=== PATIENT | female | born 1980 | race Caucasian/White ===

== ENCOUNTER → 2020-11-25 | Outpatient (CLI) | payer OTHER ==
--- NOTE | 2020-11-25 10:15 | XR ---
EXAMINATION TYPE: XR foot complete RT DATE OF EXAM: 11/25/2020 COMPARISON: NONE HISTORY: Pain TECHNIQUE: Three views are submitted. FINDINGS: The osseous structures are intact. There is no acute fracture or dislocation. 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 Mild arthropathy first MTP joint. Large calcaneal spurs noted. IMPRESSION: 1. No acute fracture or dislocation. If symptoms persist, follow-up exam in 7 to 10 days could be ob tained.
--- NOTE | 2020-11-25 10:16 | XR ---
EXAMINATION TYPE: XR knee complete LT DATE OF EXAM: 11/25/2020 COMPARISON: NONE HISTORY: Pain TECHNIQUE: Three views are submitted. FINDINGS: Joint spaces are preserved. Osseous structures are intact. No acute fracture seen. IMPRESSION: 1. No acute fracture or dislocation.
== END | disposition home or self-care (01) ==
LOC: RADXRMAIN 09:19
PROVIDERS: ATTEND Nurse Practitioner Family
DX: M25.562 Pain in left knee (principal); M79.671 Pain in right foot

== ENCOUNTER → 2021-07-08 | Outpatient (CLI) | payer OTHER ==
--- NOTE | 2021-07-08 15:34 | US ---
EXAMINATION TYPE: US pelvic complete DATE OF EXAM: 07/08/2021 COMPARISON: NONE CLINICAL HISTORY: N91.1 Secondary amenorrhea. Amenorrhea, last LMP was one year ago. TECHNIQUE: Transabdominal (TA). Transabdominal sonographic images of the pelvis were acquired. Date of LMP: Unknown EXAM MEASUREMENTS: Uterus: 7.5 x 4.0 x 3.7 cm Endometrial Stripe: 0.4 cm Right Ovary: 2.3 x 1.9 x 1.1 cm Left Ovary: 2.1 x 1.9 x 1.4 cm 1. Uterus: Anteverted wnl 2. Endometrium: wnl 3. Right Ovary: wnl 4. Left Ovary: wnl 5. Bilateral Adnexa: wnl 6. Posterior cul-de-sac: wnl Limited exam due to patient body habitus. No abnormalities seen at this time. IMPRESSION: Suboptimal study as transvaginal investigation performed. Transabdominal ultrasound shows poor visualized suspected thin endometrial stripe. Symmetric size ovaries measure lower limits of no rmal in size. No adnexal masses noted.
== END | disposition home or self-care (01) ==
LOC: RADUSWWP 14:55
PROVIDERS: ATTEND Family Medicine
DX: N91.1 Secondary amenorrhea (principal)
CPT/HCPCS: 76856

== ENCOUNTER → 2022-08-18 | Outpatient (CLI) | payer OTHER ==
--- NOTE | 2022-08-19 09:34 | MM ---
Reason for Exam: Screening (asymptomatic). Last mammogram was performed 8 year(s) and 10 month(s) ago. Patient History: Menarche at age 15. Patient has no children. Postmenopausal. Patient used Hormonal Contraceptives for 2 years. Maternal aunt had breast cancer. Maternal aunt had breast cancer. Risk Values: Nina 5 year model risk: 0.6%. NCI Lifetime model risk: 10.1%. Prior Study Comparison: 11/01/2012 Bilateral Diagnostic Mammogram, [facility]. 11/02/2013 Bilateral Screening Mammogram, [facility]. Tissue Density: The breast tissue is almost entirely fat. Findings: Analyzed By CAD. Benign-appearing bilateral axillary lymph nodes are redemonstrated. There is minimal 7 mm obscured round mass in the middle depth upper outer aspect left breast that warrants follow-up. Stable group of benign-appearing tiny round calcifications in the left breast anteriorly. Overall Assessment: Incomplete: need additional imaging evaluation, BI-RAD 0 Management: Special View Mammogram of the left breast. Diagnostic Breast Ultrasound of the left breast. Return for spot views and true lateral view left breast along with targeted ultrasound. Patient should continue monthly self-breast exams. A clinical breast exam by your physician is recommended on an annual basis. This exam should not preclude additional follow-up of suspicious palpable abnormalities. Note on Nina scores and lifetime risk: 1. A Nina score greater than 3% is considered moderate risk. If this is the case, consider specialist referral to assess eligibility for a risk reducing agent. 2. If overall lifetime risk for the development of breast cancer is 20% or higher, the patient may qualify for future screening with alternating mammogram and breast MRI. Electronically signed and approved by: Chester Ornelas M.D.
== END | disposition home or self-care (01) ==
LOC: RADMAMWWP 09:42
PROVIDERS: ATTEND Family Medicine
DX: Z12.31 Encounter for screening mammogram for malignant neoplasm of breast (principal); Z78.0 Asymptomatic menopausal state; Z80.3 Family history of malignant neoplasm of breast
CPT/HCPCS: 77067

== ENCOUNTER → 2022-08-25 | Outpatient (CLI) | payer OTHER ==
--- NOTE | 2022-08-25 14:25 | MM ---
Reason for Exam: Additional evaluation requested from abnormal screening. Last screening mammogram was performed less than 1 month ago. Patient History: Menarche at age 15. Patient has no children. Postmenopausal. Patient used Hormonal Contraceptives for 2 years. Maternal aunt had breast cancer. Maternal aunt had breast cancer. Risk Values: Nina 5 year model risk: 0.6%. NCI Lifetime model risk: 10.1%. Prior Study Comparison: 11/01/2012 Bilateral Diagnostic Mammogram, [facility]. 11/02/2013 Bilateral Screening Mammogram, [facility]. 08/18/2022 Bilateral MG screening mammo w CAD, [facility]. Tissue Density: Left: There are scattered fibroglandular densities. Findings: Analyzed By CAD. Persistent focal asymmetry 12 cm from the nipple on CC and MLO view measuring 6 mm in the upper outer quadrant. Overall Assessment: Incomplete: need additional imaging evaluation, BI-RAD 0 Management: Diagnostic Breast Ultrasound of the left breast. Results were given to the patient verbally at the time of exam. Patient should continue monthly self-breast exams. A clinical breast exam by your physician is recommended on an annual basis. This exam should not preclude additional follow-up of suspicious palpable abnormalities. Note on Nina scores and lifetime risk: 1. A Nina score greater than 3% is considered moderate risk. If this is the case, consider specialist referral to assess eligibility for a risk reducing agent. 2. If overall lifetime risk for the development of breast cancer is 20% or higher, the patient may qualify for future screening with alternating mammogram and breast MRI. Electronically signed and approved by: Seth Sharma DO
--- NOTE | 2022-08-25 14:39 | USB ---
Reason for Exam: Additional evaluation requested from abnormal screening. Patient History: Menarche at age 15. Patient has no children. Postmenopausal. Patient used Hormonal Contraceptives for 2 years. Maternal aunt had breast cancer. Maternal aunt had breast cancer. Risk Values: Nina 5 year model risk: 0.6%. NCI Lifetime model risk: 10.1%. Technique: Method: Targeted. Prior Study Comparison: 11/01/2012 Bilateral Diagnostic Mammogram, [facility]. 11/02/2013 Bilateral Screening Mammogram, [facility]. 08/18/2022 Bilateral MG screening mammo w CAD, [facility]. Findings: The upper outer quadrant of the left breast was scanned. Imaged: Ultrasound imaging of: Area of concern. We did not image the retroareolar or axilla. Area on prior mammogram in the left breast is not definitively visualized on ultrasound imaging. No suspicious masses or fluid collections. Overall Assessment: Probably benign, BI-RAD 3 Management: Diagnostic Mammogram of the left breast in 6 months. Follow-up mammogram in 6 months to ensure stability is recommended as the finding was not visualized ultrasound. A clinical breast exam by your physician is recommended on an annual basis and results should be correlated with mammographic findings. This exam should not preclude additional follow-up of suspicious palpable abnormalities. Results were given to the patient verbally at the time of exam. Electronically signed and approved by: Seth Sharma DO
== END | disposition home or self-care (01) ==
LOC: RADMAMWWP 13:33
PROVIDERS: ATTEND Family Medicine
DX: N64.89 Other specified disorders of breast (principal); Z78.0 Asymptomatic menopausal state; Z80.3 Family history of malignant neoplasm of breast
CPT/HCPCS: 77061; 77065

== ENCOUNTER → 2024-01-18 | Outpatient (CLI) | payer BC ==
[2024-01-18 17:18] VITALS: BP 126/85; PULSE 65; RESP 16; TEMP 97.8; BMI 54.0
--- NOTE | 2024-01-18 17:24 | P.HPBAR ---
Bariatric H&P - History & Physicial H&P Date: 01/18/24 History & Physicial: Visit/CC: Patient initial contact: Initial weight: Initial weight in pounds: Height: 5 ft 5.25 in Initial BMI: Last weight: Current weight: 148.353 kg Current weight in pounds: 327.06 Current BMI: 54.0 [place] body weight (based on NIH guidelines): 57.266 kg Excess body weight loss: The patient is a 43 year-old F who presents for Bariatric Assessment. She was on adipex in past. Highest weight is 338 pounds. Wants the gastric bypass. EGD and plan. No back pain. Needs labs, Bypass. Past Medical History Additional Past Medical History / Comment(s): planter fasciitis, rt ankle fracture, pre diabetic History of Any Multi-Drug Resistant Organisms: None Reported Past Surgical History: Cholecystectomy Additional Past Surgical History / Comment(s): eye sugery at age 3, Past Anesthesia/Blood Transfusion Reactions: No Reported Reaction Past Psychological History: Depression Smoking Status: Former smoker Past Alcohol Use History: Occasional Past Drug Use History: None Reported - Past Family History Father Family Medical History: No Reported History Surgical - Exam Vital Signs Temp Pulse Resp BP 97.8 F 65 16 126/85 01/18/24 17:11 01/18/24 17:11 01/18/24 17:11 01/18/24 17:11 Bariatric Checklist Checklist: Plan: Checklist: EGD: 1. Hiatal hernia: 2. H. Pylori: HgbA1c: Vitamin D: Smoking: Current every day smoker Primary care physician referral: Jaki at dr floyd Psychiatry clearance: Cardiology clearance: Sleep study: Diet journal: VTE risk score: VTE risk level: Rehab needs at discharge:
== END ==
LOC: BARWHC3 15:52
PROVIDERS: ATTEND Surgery Plastic and Reconstructive Surgery
DX: E66.01 Morbid (severe) obesity due to excess calories (principal); F17.200 Nicotine dependence, unspecified, uncomplicated; Z68.43 Body mass index [BMI] 50.0-59.9, adult
CPT/HCPCS: 99211

== ENCOUNTER → 2024-02-10 | Outpatient (CLI) | payer BC ==
--- NOTE | 2024-02-10 11:30 | MM ---
Reason for Exam: Additional evaluation requested from prior study. Last mammogram was performed 1 year(s) and 6 month(s) ago. Patient History: Menarche at age 15. Patient has no children. Patient used Hormonal Contraceptives for 2 years. Maternal aunt had breast cancer. Maternal aunt had breast cancer. Risk Values: Nina 5 year model risk: 0.7%. NCI Lifetime model risk: 10.0%. Prior Study Comparison: 11/01/2012 Bilateral Diagnostic Mammogram, [facility]. 11/02/2013 Bilateral Screening Mammogram, [facility]. 08/18/2022 Bilateral MG screening mammo w CAD, [facility]. 08/25/2022 Left MG 3D work up w/cad , [facility]. Tissue Density: The breasts are almost entirely fatty. Findings: Analyzed By CAD. Unchanged intramammary lymph node posterior upper outer quadrant right breast. Chronic nodularity now lateral left breast middle to posterior depth for 1.5 years. No significant change from prior exams. Overall Assessment: Benign, BI-RAD 2 Management: Screening Mammogram of both breasts in 1 year. Results were given to the patient verbally at the time of exam. Patient should continue monthly self-breast exams. A clinical breast exam by your physician is recommended on an annual basis. This exam should not preclude additional follow-up of suspicious palpable abnormalities. Note on Nina scores and lifetime risk: 1. A Nina score greater than 3% is considered moderate risk. If this is the case, consider specialist referral to assess eligibility for a risk reducing agent. 2. If overall lifetime risk for the development of breast cancer is 20% or higher, the patient may qualify for future screening with alternating mammogram and breast MRI. [facility], , 02/10/2024 11:27 AM. Electronically signed and approved by: Shruthi Wren M.D. Radiologist
== END | disposition home or self-care (01) ==
LOC: RADMAMWWP 10:42
PROVIDERS: ATTEND Family Medicine
DX: R92.8 Other abnormal and inconclusive findings on diagnostic imaging of breast (principal); E66.01 Morbid (severe) obesity due to excess calories; I10 Essential (primary) hypertension; E89.1 Postprocedural hypoinsulinemia; D50.8 Other iron deficiency anemias; K74.1 Hepatic sclerosis; N19 Unspecified kidney failure; T56.894A Toxic effect of other metals, undetermined, initial encounter; K50.90 Crohn's disease, unspecified, without complications; K90.9 Intestinal malabsorption, unspecified; Z80.3 Family history of malignant neoplasm of breast; R92.313 Mammographic fatty tissue density, bilateral breasts
CPT/HCPCS: 77062; 77066

== ENCOUNTER → 2024-03-12 | Day surgery (SDC) | payer BC ==
[~2024-03-12] MED LIST: GLYCOPYRROLATE 0.2 MG/ML 2 ML VIAL ONE; KETAMINE HCL IN 0.9 % NACL 50 MG/5 ML SYRINGE ONE; LIDOCAINE 1% INJ 10MG/ML (20 ML MDV) ONE; PROPOFOL 10 MG/ML 20 ML VIAL IV ONE
--- NOTE | 2024-03-12 07:54 | P.GSHP ---
History of Present Illness H&P Date: 03/12/24 CHIEF COMPLAINT: GERD HISTORY OF PRESENT ILLNESS: The patient is a 43-year-old female who presents reports gastroesophageal reflux disease. Upper endoscopy was offered for further evaluation and management. PAST MEDICAL HISTORY: Please see list. PAST SURGICAL HISTORY: Please see list. MEDICATIONS: Please see list. ALLERGIES: Please see list. SOCIAL HISTORY: No illicit drug use FAMILY HISTORY: No reports of Crohn disease or ulcerative colitis. REVIEW OF ORGAN SYSTEMS: CONSTITUTIONAL: No reports of fevers or chills. GI: Denies any blood in stools or constipation. PHYSICAL EXAM: VITAL SIGNS: Stable GENERAL: Well-developed and pleasant in no acute distress. HEENT: No scleral icterus. Extraocular movements grossly intact. Moist buccal mucosa. NECK: Supple without lymphadenopathy. CHEST: Unlabored respirations. Equal bilateral excursions. CARDIOVASCULAR: Regular rate and rhythm. Distal 2+ pulses. ABDOMEN: Soft, nondistended. MUSCULOSKELETAL: No clubbing, cyanosis, or edema. ASSESSMENT: 1. Gastroesophageal reflux disease PLAN: 1. Recommend proceeding with an upper endoscopy Past Medical History Past Medical History: GERD/Reflux Additional Past Medical History / Comment(s): pre diabetic History of Any Multi-Drug Resistant Organisms: None Reported Past Surgical History: Cholecystectomy Additional Past Surgical History / Comment(s): eye surg at age 3 Past Anesthesia/Blood Transfusion Reactions: No Reported Reaction Smoking Status: Former smoker - Past Family History Father Family Medical History: No Reported History Medications and Allergies Home Medications Medication Instructions Recorded Confirmed Type Venlafaxine HCl ER [Effexor Xr] 150 mg PO HS 01/18/24 03/05/24 History metFORMIN HCL 500 mg PO HS 01/18/24 03/05/24 History Calcium Carbonate [Tums] 500 mg PO DAILY 02/15/24 03/05/24 History Ergocalciferol [Vitamin D2 (1250 50,000 unit PO WEEKLY 02/15/24 03/05/24 History Mcg = 18960 Iu)] Fexofenadine HCl 180 mg PO DAILY PRN 03/05/24 03/05/24 History Allergies Allergy/AdvReac Type Severity Reaction Status Date / Time No Known Allergies Allergy Verified 03/05/24 12:26
[2024-03-12 08:52] VITALS: TEMP 97
[2024-03-12] MEDS: LACTATED RINGERS 1,000 ML BAG IV STA (08:54)
[2024-03-12] MEDS: LIDOCAINE 1% (10MG/ML) FOR IV START INTRADERMA STA (08:55)
[2024-03-12] MEDS: IV FLUID CONTINUATION 1,000 ML IV ONE (08:56)
[2024-03-12 09:15] LABS: Glucose,Whole Blood 114 mg/dL (70-110)
--- NOTE | 2024-03-12 09:30 | P.PCN ---
Date of Procedure: 03/12/24 Description of Procedure: PREOPERATIVE DIAGNOSIS: Gastroesophageal reflux disease. Morbid obesity. POSTOPERATIVE DIAGNOSIS: Gastroesophageal reflux disease with esophageal ulcer Morbid obesity. Gastritis. Diaphragmatic hiatal hernia OPERATION: Esophagogastroduodenoscopy with biopsies along esophagus, antrum and duodenum SURGEON: Aline Moss MD ANESTHESIA: MAC. INDICATIONS: The patient is a 43-year-old female who presents with reflux disease. Benefits and risks of the procedure were described. Informed consent was obtained. DESCRIPTION: The patient was brought into the endoscopy suite and laid in the left lateral decubitus position. An Olympus gastroscope was passed along the posterior oropharynx down to the distal esophagus where the squamocolumnar junction was encountered at 37 cm from the incisors. The stomach was entered and no bile reflux was found. Additional findings are listed below. Biopsies with cold forceps were obtained of the antrum. The first through third portion of the duodenum was examined. Retroflexion of the scope confirmed Hill grade 3 lower esophageal valve. The squamocolumnar junction demonstrated LA grade C erosive esophagitis. The stomach was desufflated. The patient tolerated the procedure well. FINDINGS: Squamocolumnar junction 37 cm from the incisors. Diaphragmatic hiatus at 40 cm. Hiatal hernia, 3 cm Hill grade 3 lower esophageal valve. LA grade C erosive esophagitis. Biopsies obtained Biopsies obtained of the duodenum. Chronic gastritis with biopsies obtained. RECOMMENDATIONS: Omeprazole 40 mg daily prescribed Repeat upper endoscopy in 4 to 6 weeks Plan - Discharge Summary Discharge Rx Participant: No New Discharge Prescriptions: New Omeprazole [PriLOSEC] 40 mg PO DAILY #14 cap Continue Venlafaxine HCl ER [Effexor XR] 150 mg PO HS Fexofenadine HCl 180 mg PO DAILY PRN PRN Reason: allergies metFORMIN HCL 500 mg PO HS Calcium Carbonate [Tums] 500 mg PO DAILY Ergocalciferol [Vitamin D2 (1250 Mcg = 42915 Iu)] 50,000 unit PO WEEKLY Discharge Medication List Venlafaxine HCl ER [Effexor XR] 150 mg PO HS 01/18/24 [History] metFORMIN HCL 500 mg PO HS 01/18/24 [History] Calcium Carbonate [Tums] 500 mg PO DAILY 02/15/24 [History] Ergocalciferol [Vitamin D2 (1250 Mcg = 89549 Iu)] 50,000 unit PO WEEKLY 02/15/24 [History] Fexofenadine HCl 180 mg PO DAILY PRN 03/05/24 [History] Omeprazole [PriLOSEC] 40 mg PO DAILY #14 cap 03/12/24 [Rx] Follow up Appointment(s)/Referral(s): [facility] [[facility]-STAFF] - 03/28/24 3:30 pm Patient Instructions/Handouts: Diet for Stomach Ulcers and Gastritis (GEN), Hiatal Hernia (DC) Discharge Disposition: HOME SELF-CARE
[2024-03-12 09:49] VITALS: BP 149/98; PULSE 70; RESP 16
== END | disposition home or self-care (01) ==
LOC: ORWHC2ENDO 08:21
PROVIDERS: ATTEND Surgery Plastic and Reconstructive Surgery
DX: K29.50 Unspecified chronic gastritis without bleeding (principal); K44.9 Diaphragmatic hernia without obstruction or gangrene; K21.00 Gastro-esophageal reflux disease with esophagitis, without bleeding; K22.10 Ulcer of esophagus without bleeding; E11.9 Type 2 diabetes mellitus without complications; F41.9 Anxiety disorder, unspecified; F32.A Depression, unspecified; E66.01 Morbid (severe) obesity due to excess calories; Z87.891 Personal history of nicotine dependence; Z90.49 Acquired absence of other specified parts of digestive tract; Z79.899 Other long term (current) drug therapy
CPT/HCPCS: 81025; 43239; J2003; J2704; J1596; 88305

== ENCOUNTER → 2024-03-28 | Outpatient (CLI) | payer BC ==
[2024-03-28 16:13] VITALS: BP 145/85; PULSE 76; RESP 16; TEMP 98.5
--- NOTE | 2024-03-28 16:47 | P.BASOAP ---
Subjective Progress Note Date: 03/28/24 She wants the bypass. Labs reviewed. Food dairy journal. Labs, vit D, chol, Goal 80 grams. Omepraozle. EKG needed. Objective - Vital Signs Vital signs: Vital Signs Temp 98.5 F 03/28/24 16:07 Pulse 76 03/28/24 16:07 Resp 16 03/28/24 16:07 BP 145/85 03/28/24 16:07 Pulse Ox FiO2 Intake & Output 03/27/24 03/28/24 03/28/24 18:59 06:59 18:59 Weight 153.768 kg Assessment/Plan Plan: Date: 03/28/24 Initial Weight: Initial BMI: Current Weight: 153.768 kg Current BMI: Type of Surgery: Total Volume in Band: Previous Volume: Volume Removed: Volume Added: Band Size:
== END ==
LOC: BARWHC3 15:31
PROVIDERS: ATTEND Surgery Plastic and Reconstructive Surgery
DX: E66.01 Morbid (severe) obesity due to excess calories (principal); F17.200 Nicotine dependence, unspecified, uncomplicated; Z68.43 Body mass index [BMI] 50.0-59.9, adult
CPT/HCPCS: 99211

== ENCOUNTER → 2024-04-23 | Outpatient (CLI) | payer BC | LOC: LABPAT 14:45 | PROVIDERS: ATTEND Surgery Plastic and Reconstructive Surgery | DX: Z01.818 Encounter for other preprocedural examination (principal) ==

== ENCOUNTER → 2024-04-23 | Outpatient (CLI) | payer BC ==
[2024-04-23 13:30] VITALS: BMI 55.2
== END ==
LOC: BARWHC3 12:57
PROVIDERS: ATTEND Surgery Plastic and Reconstructive Surgery
DX: E66.01 Morbid (severe) obesity due to excess calories (principal); F17.210 Nicotine dependence, cigarettes, uncomplicated; Z68.43 Body mass index [BMI] 50.0-59.9, adult
CPT/HCPCS: 97804

== ENCOUNTER → 2024-05-30 | Outpatient (CLI) | payer BC ==
[2024-05-30 18:08] VITALS: BP 154/91; PULSE 82; RESP 16; TEMP 97.7; BMI 55.0
--- NOTE | 2024-05-31 13:54 | P.BASOAP ---
Subjective Progress Note Date: 05/30/24 DATE: 05/30/24 CHIEF COMPLAINT: Morbid obesity HISTORY OF PRESENT ILLNESS: Antoinette Lozano is a 43-year-old female who comes with lifelong morbid obesity. As result of morbid obesity, she has developed diabetes type 2, hypertensive heart disease, obstructive sleep apnea, hyperlipidemia, osteoarthritis of the hips and knees. Her weight has not changed in 1 month. She is looking to the gastric bypass. She has completed medical risk assessment, cardiac risk assessment and dietary surveillance and counseling. At height of 5 feet 5 inches, her ideal body weight is 154 pounds. Her highest documented weight is 338 pounds, BMI 56.4. Today she comes in 333 pounds. Body mass index is 55.0. She is 184 pounds overweight. PAST MEDICAL HISTORY: 1. Morbid obesity due to excess calories 2. Body mass index of 56.4 3. Osteoarthritis of the knees. 4. Osteoarthritis of the lower back. 5. Hypertensive heart disease. 6. Gastroesophageal reflux disease 7. Hyperlipidemia 8. Generalized anxiety disorder 9. Diabetes type 2, non-insulin dependent 10. Depressive disorder PAST SURGICAL HISTORY: 1. Cholecystectomy 2. Hysterectomy 3. Lysis of adhesions 4. Bilateral carpal tunnel release 5. Colonoscopy 6. Upper endoscopy HOME MEDICATIONS: Home Medications Medication Instructions Recorded Confirmed metFORMIN HCL 500 mg PO HS 01/18/24 07/18/24 Fexofenadine HCl 180 mg PO DAILY PRN 03/05/24 07/18/24 Omeprazole [PriLOSEC] 40 mg PO HS 07/11/24 07/18/24 Venlafaxine HCl [Effexor XR] 1 cap PO HS 07/11/24 07/18/24 Previous Rx's Medication Instructions Recorded Acetaminophen Tab [Tylenol] 1,000 mg PO Q6HR PRN #30 tablet 07/10/24 Simethicone 40 mg/0.6 ml Drops 40 mg PO PCHS PRN #30 ml 07/10/24 [Mylicon Drops] bisacodyL [Dulcolax] 5 mg PO DAILY PRN #10 tab 07/10/24 ALLERGIES: Allergies Allergy/AdvReac Type Severity Reaction Status Date / Time adhesive AdvReac Rash/Hives Verified 07/18/24 14:25 SOCIAL HISTORY: Past tobacco use. FAMILY HISTORY: No family history of ulcerative colitis disease or Crohn's disease. Family history of morbid obesity. No lupus in the family. REVIEW OF ORGAN SYSTEMS: CONSTITUTIONAL: At height of 5 feet 5 inches, her ideal body weight is 149 pounds. Her highest documented weight is 338 pounds, BMI 56.4. HEENT: Denies any active troubles with vision or hearing. ENDOCRINE: Has diabetes. Has hypothyroidism. CARDIOVASCULAR: Past reports of palpitations or heart attacks or chest pain. RESPIRATORY: Has daytime somnolence. GASTROINTESTINAL: Denies any bright red blood per rectum. Has gastroesophageal reflux disease. MUSCULOSKELETAL: Has lower back pain and joint pain. Has osteoarthritis of the knees. NEURO: No headaches. No seizure disorders. PSYCH: Has depression. No suicidal ideation. RHEUMATOLOGIC: No lupus. No rheumatoid arthritis. HEMATOLOGIC: Denies any abnormal bleeding or bruising. No personal history of DVTs. SKIN: Has rash. No skin cancer. PHYSICAL EXAM: VITAL SIGNS: Height 5 foot 5 inches, weight 333 pounds. BMI 55.0 Vital Signs Temp 97.7 F 05/30/24 18:04 Pulse 82 05/30/24 18:04 Resp 16 05/30/24 18:04 BP 154/91 05/30/24 18:04 Pulse Ox FiO2 GENERAL: Well-developed in no acute distress. HEENT: No scleral icterus. Extraocular movements grossly intact. Hears conversational speech. No nasal drainage. NECK: Supple without lymphadenopathy. CHEST: Nonlabored respirations with equal bilateral excursions. CARDIOVASCULAR: Regular rate and regular rhythm. Distal 2+ pulses. ABDOMEN: Obese, soft, nontender, nondistended. MUSCULOSKELETAL: No clubbing, cyanosis. NEURO: No focal or lateralizing signs. Cranial nerves 2 through 12 grossly within normal limits. PSYCH: Appropriate affect. Alert and oriented to person, place and time. SKIN: Good skin turgor. Well perfused. LABS: Reviewed February 2024. Hemoglobin A1c elevated 6.4%. Cholesterol elevated at 204. Vitamin D low at 22. EKG: Normal sinus rhythm, April 2024 EGD FINDING: Squamocolumnar junction 37 cm from the incisors. Diaphragmatic hiatus at 40 cm. Hiatal hernia, 3 cm Hill grade 3 lower esophageal valve. LA grade C erosive esophagitis. Biopsies obtained Biopsies obtained of the duodenum. Chronic gastritis with biopsies obtained. Final Pathologic Diagnosis A. DUODENUM, BIOPSY: Benign small bowel mucosa with intact villous architecture, negative for histopathologic abnormality. B. GASTRIC ANTRUM, BIOPSY: Minimal chronic gastritis. Helicobacter pylori organisms are not identified on routine H+E sections. C. ESOPHAGUS, BIOPSY: Mild chronic esophagitis with rare intramucosal eosinophils consistent with reflux esophagitis. ASSESSMENT: 1. Morbid obesity due to excess calories 2. Body mass index of 56.4 3. Osteoarthritis of the knees. 4. Osteoarthritis of the lower back. 5. Hypertensive heart disease. 6. Gastroesophageal reflux disease 7. Hyperlipidemia 8. Generalized anxiety disorder 9. Diabetes type 2, non-insulin dependent 10. Depressive disorder 11. Vitamin D deficiency 12. Diaphragmatic hiatal hernia PLAN: 1. Bariatric options between a sleeve, band and a Nery-en-Y gastric bypass were reviewed in detail. The patient elected for a gastric bypass. Robotic assisted approach described. 2. The [place] [facility] Data was also reviewed with benefits and risks as described. 3. An 8 page second-generation bariatric consent form was reviewed in detail including potential of bleeding, infection, leaks, adequate weight loss, nutritional deficiencies which the patient demonstrated understanding of the risks. 4. A 2 week high-protein low caloric 800 kcal diet described to address hepatomegaly. 5. Preoperative labs including complete metabolic panel and CBC with type and screen recommended. 6. DVT prophylaxis per [place] [facility]. 7. Antibiotic prophylaxis. 8. Inpatient hospitalization anticipated for more than 2 nights. 9. All questions and concerns were addressed with the patient. 10. Patient was given a dietary weight loss goal down to 315. Today she comes in 333 pounds. 11. She is elevated risk with a BMI over 50 including weight gain. 12. Patient was told explicitly that surgery will not occur if her weight loss goal is not obtained. 13. Patient wanted to proceed with potential weight loss surgery on Tuesday. 14. Again surgery will be canceled if weight loss goal of 315 is not obtained Objective - Vital Signs Vital signs: Vital Signs Temp 97.7 F 05/30/24 18:04 Pulse 82 05/30/24 18:04 Resp 16 05/30/24 18:04 BP 154/91 05/30/24 18:04 Pulse Ox FiO2 Intake & Output 05/30/24 05/31/24 05/31/24 18:59 06:59 18:59 Weight 151.046 kg Assessment/Plan Plan: Date: 02/19/25 Initial Weight: Initial BMI: Current Weight: 151.046 kg Current BMI: 55.0 Type of Surgery: Total Volume in Band: Previous Volume: Volume Removed: Volume Added: Band Size:
== END ==
LOC: BARWHC3 16:26
PROVIDERS: ATTEND Surgery Plastic and Reconstructive Surgery
DX: E66.01 Morbid (severe) obesity due to excess calories (principal); Z68.43 Body mass index [BMI] 50.0-59.9, adult; F17.210 Nicotine dependence, cigarettes, uncomplicated; Z91.048 Other nonmedicinal substance allergy status
CPT/HCPCS: 99211

== ENCOUNTER → 2024-06-01 | Outpatient (CLI) | payer BC ==
[2024-06-01 15:14] LABS: Basophils # (A) 0.02 X 10*3/uL (0.00-0.10); Basophils % (A) 0.3 %; Eosinophils # (A) 0.03 X 10*3/uL (0.04-0.35); Eosinophils % (A) 0.5 %; HCT 42.1 % (37.2-46.3); HGB 12.9 g/dL (12.0-15.0); Lymphocytes % (A) 17.7 %; MCH 25.1 pg (27.0-32.0); MCHC 30.6 g/dL (32.0-37.0); MCV 82.1 FL (80.0-97.0); Mean Platelet Volume 10.9 FL (9.5-12.2); Monocytes # (A) 0.44 X 10*3/uL (0.20-1.00); Monocytes % (A) 7.1 %; NRBC Per 100 WBC 0 X 10*3/uL (0.00-0.01); Neutrophils # (A) 4.59 X 10*3/uL (1.80-7.70); Neutrophils % (A) 74.1 %; Platelet Count 249 X 10*3/uL (140-440); RBC 5.13 X 10*6/uL (4.10-5.20); RDW 14.1 % (11.5-14.5)
[2024-06-01 15:26] LABS: Blood Urea Nitrogen 15.7 mg/dL (9.0-27.0); Glucose 95 mg/dL (70-110)
[2024-06-01 15:27] LABS: ALT 41 U/L (8-44); AST 33 U/L (13-35); Albumin 4.2 g/dL (3.8-4.9); Alkaline Phosphatase 118 U/L (41-126); Calcium 9.2 mg/dL (8.7-10.3); Carbon Dioxide 24.1 mmol/L (21.6-31.8); Chloride 102 mmol/L (96-109); Globulin 3.5 g/dL (1.6-3.3); Potassium 3.9 mmol/L (3.5-5.5); Sodium 138 mmol/L (135-145); Total Bilirubin 0.3 mg/dL (0.3-1.2); Total Protein 7.7 g/dL (6.2-8.2)
== END | disposition home or self-care (01) ==
LOC: LABPAT 10:15
PROVIDERS: ATTEND Surgery Plastic and Reconstructive Surgery
DX: Z01.812 Encounter for preprocedural laboratory examination (principal)
CPT/HCPCS: 80053; 85025; 86850; 86900; 86901

== ENCOUNTER 2024-06-04 06:18 | Day surgery (SDC) | payer BC ==
[2024-05-31 14:42] VITALS: BMI 53.7
[~2024-06-04 06:18] MED LIST changes: -GLYCOPYRROLATE 0.2 MG/ML 2 ML VIAL ONE; +HYDROmorphone 0.5 MG/0.5 ML SYRINGE IVP PRN; -KETAMINE HCL IN 0.9 % NACL 50 MG/5 ML SYRINGE ONE; +LACTATED RINGERS 1,000 ML IV SCH; +LIDOCAINE 1% (10MG/ML) FOR IV START INTRADERMA PRN; -LIDOCAINE 1% INJ 10MG/ML (20 ML MDV) ONE; +ONDANSETRON 4 MG/2 ML VIAL IVP ONE; -PROPOFOL 10 MG/ML 20 ML VIAL IV ONE; +droPERidol 2.5 MG/ML VIAL IVP ONE
[2024-06-04 07:45] LABS: Glucose,Whole Blood 87 mg/dL (70-110)
[2024-06-04] MEDS: LACTATED RINGERS 1,000 ML IV ONE ×2 (07:50→08:22)
[2024-06-04] MEDS: ALVIMOPAN 12 MG CAPSULE PO PRN (07:54)
[2024-06-04] MEDS: ONDANSETRON 4 MG/2 ML VIAL IVP PRN (07:54)
[2024-06-04] MEDS: ACETAMINOPHEN TAB 500 MG TAB PO PRN (07:54)
[2024-06-04] MEDS ORDERED: SCOPOLAMINE 1 MG/72 HR PATCH TRANSDERM STA (07:55)
[2024-06-04] MEDS: DEXAMETHASONE SOD PHOSPHATE 4 MG/ML 1 ML VIAL IV ONE (07:55)
[2024-06-04] MEDS: MIDAZOLAM 2 MG/2 ML VIAL IV ONE (07:58)
[2024-06-04] MEDS: HEPARIN SODIUM,PORCINE 5,000 UNIT/ML 1 ML VIAL SQ PRN (08:14)
--- NOTE | 2024-06-04 08:14 | P.GSHP ---
History of Present Illness H&P Date: 06/04/24 CHIEF COMPLAINT: Morbid obesity HISTORY OF PRESENT ILLNESS: Antoinette Lozano is a 43-year-old female who comes with lifelong morbid obesity. As result of morbid obesity, she has developed diabetes type 2, hypertensive heart disease, obstructive sleep apnea, hyperlipidemia, osteoarthritis of the hips and knees. She has completed medical supervised weight loss. She completed medical including cardiac assessment. She has completed psychological risk assessment. All surgical options were reviewed. She elected for gastric bypass. At height of 5 feet 5 inches, her ideal body weight is 154 pounds. Her highest documented weight is 338 pounds, BMI 56.4. Her goal of weight for today's procedure is 318 pounds. She comes in 324 pounds. Her body mass index is 53.9. She is 175 pounds overweight. PAST MEDICAL HISTORY: 1. Morbid obesity due to excess calories 2. Body mass index of 56.4 3. Osteoarthritis of the knees. 4. Osteoarthritis of the lower back. 5. Hypertensive heart disease. 6. Gastroesophageal reflux disease 7. Hyperlipidemia 8. Generalized anxiety disorder 9. Diabetes type 2, non-insulin dependent 10. Depressive disorder PAST SURGICAL HISTORY: 1. Cholecystectomy 2. Hysterectomy 3. Lysis of adhesions 4. Bilateral carpal tunnel release 5. Colonoscopy 6. Upper endoscopy HOME MEDICATIONS: Reviewed list ALLERGIES: Reviewed list SOCIAL HISTORY: Past tobacco use. FAMILY HISTORY: No family history of ulcerative colitis disease or Crohn's disease. Family history of morbid obesity. No lupus in the family. REVIEW OF ORGAN SYSTEMS: CONSTITUTIONAL: At height of 5 feet 5 inches, her ideal body weight is 149 pounds. Her highest documented weight is 338 pounds, BMI 56.4. Her goal of weight for today's procedure is 318 pounds. She comes in 324 pounds. Her body mass index is 52.3. She is 175 pounds overweight. HEENT: Denies any active troubles with vision or hearing. ENDOCRINE: Has diabetes. Has hypothyroidism. CARDIOVASCULAR: Past reports of palpitations or heart attacks or chest pain. RESPIRATORY: Has daytime somnolence. GASTROINTESTINAL: Denies any bright red blood per rectum. Has gastroesophageal reflux disease. MUSCULOSKELETAL: Has lower back pain and joint pain. Has osteoarthritis of the knees. NEURO: No headaches. No seizure disorders. PSYCH: Has depression. No suicidal ideation. RHEUMATOLOGIC: No lupus. No rheumatoid arthritis. HEMATOLOGIC: Denies any abnormal bleeding or bruising. No personal history of DVTs. SKIN: Has rash. No skin cancer. PHYSICAL EXAM: VITAL SIGNS: Height 5 foot 5 inches, weight 324 pounds. BMI 53.9 GENERAL: Well-developed in no acute distress. HEENT: No scleral icterus. Extraocular movements grossly intact. Hears conversational speech. No nasal drainage. NECK: Supple without lymphadenopathy. CHEST: Nonlabored respirations with equal bilateral excursions. CARDIOVASCULAR: Regular rate and regular rhythm. Distal 2+ pulses. ABDOMEN: Obese, soft, nontender, nondistended. MUSCULOSKELETAL: No clubbing, cyanosis. NEURO: No focal or lateralizing signs. Cranial nerves 2 through 12 grossly within normal limits. PSYCH: Appropriate affect. Alert and oriented to person, place and time. SKIN: Good skin turgor. Well perfused. ASSESSMENT: 1. Morbid obesity due to excess calories 2. Body mass index of 56.4 3. Osteoarthritis of the knees. 4. Osteoarthritis of the lower back. 5. Hypertensive heart disease. 6. Gastroesophageal reflux disease 7. Hyperlipidemia 8. Generalized anxiety disorder 9. Diabetes type 2, non-insulin dependent 10. Depressive disorder PLAN: 1. Bariatric options between a sleeve, band and a Nery-en-Y gastric bypass were reviewed in detail. The patient elected for a gastric bypass. Robotic assisted approach described. 2. The [place] [facility] Data was also reviewed with benefits and risks as described. 3. An 8 page second-generation bariatric consent form was reviewed in detail including potential of bleeding, infection, leaks, adequate weight loss, nutritional deficiencies which the patient demonstrated understanding of the risks. 4. A 2 week high-protein low caloric 800 kcal diet described to address hepatomegaly. 5. Preoperative labs including complete metabolic panel and CBC with type and screen recommended. 6. DVT prophylaxis per [place] [facility]. 7. Antibiotic prophylaxis. 8. Inpatient hospitalization anticipated for more than 2 nights. 9. All questions and concerns were addressed with the patient. 10. Overall, patient has expressed understanding of bariatric care including postoperative diet and commitment of lifestyle. Patient should benefit from surgical intervention for correction of her morbid obesity. 11. Extensive counseling for over 3 to 4 weeks with goal weight loss to 318 pounds was described to the patient including at her recent bariatric visit. Patient was extensively counseled that lack of obtaining goal weight puts her at increased risk for complications due to the risk of severe hepatomegaly. Risk of discontinuing her procedure and canceling procedure described in detail. Patient wished to proceed with possibility of diagnostic laparoscopy. Past Medical History Past Medical History: GERD/Reflux Additional Past Medical History / Comment(s): pre diabetic History of Any Multi-Drug Resistant Organisms: None Reported Past Surgical History: Cholecystectomy Additional Past Surgical History / Comment(s): eye surg at age 3 Past Anesthesia/Blood Transfusion Reactions: No Reported Reaction Additional Past Anesthesia/Blood Transfusion Reaction / Comment(s): no hx blood transfusion Additional Past Alcohol Use History / Comment(s): quit smoking 2 yrs ago; drinks about once a month. - Past Family History Father Family Medical History: No Reported History Medications and Allergies Home Medications Medication Instructions Recorded Confirmed Type Venlafaxine HCl ER [Effexor XR] 150 mg PO HS 01/18/24 05/31/24 History metFORMIN HCL 500 mg PO HS 01/18/24 05/31/24 History Ergocalciferol [Vitamin D2 (1250 50,000 unit PO WEEKLY 02/15/24 05/31/24 History Mcg = 85540 Iu)] Fexofenadine HCl 180 mg PO DAILY PRN 03/05/24 05/31/24 History Omeprazole [PriLOSEC] 40 mg PO HS 05/30/24 05/31/24 History Allergies Allergy/AdvReac Type Severity Reaction Status Date / Time No Known Allergies Allergy Verified 05/31/24 14:36 Surgical - Exam Vital Signs Temp Pulse Resp BP Pulse Ox 97.4 F L 75 16 138/84 95 06/04/24 07:01 06/04/24 07:01 06/04/24 07:01 06/04/24 07:01 06/04/24 07:01
--- NOTE | 2024-06-04 08:15 | P.ANPRN ---
Procedure Note - Anesthesia - Nerve Block Performed Bilateral Erector Spinae Single Time Out Performed: Yes Date of Procedure: 06/04/24 Procedure Start Time: 07:50 ( ) Procedure Stop Time: 07:55 Location of Patient: PreOp Indication: Acute Post-Operative Pain, Analgesia, Requested by Surgeon Sedation Type: Sedate with meaningful contact maintained Preparation: Sterile Prep Position: Prone Catheter: None Needle Types: Pajunk Needle Gauge: 21 Ultrasound used to visualize needle placement: Yes Ultrasound used to observe medication spread: Yes Injectate: 0.5% Ropivacaine (see comment for volume) ([id number], Needle level T7---Each side (Resident).) Blood Aspirated: No Pain Paresthesia on Injection Noted: No Resistance on Injection: Normal Image Stored and Saved: Yes Events: Uneventful and Well Tolerated
[2024-06-04] MEDS ORDERED: GLYCOPYRROLATE 0.2 MG/ML 2 ML VIAL ONE (08:19)
[2024-06-04] MEDS ORDERED: DEXAMETHASONE SOD PHOSPHATE 4 MG/ML 1 ML VIAL ONE (08:19)
[2024-06-04] MEDS ORDERED: fentaNYL (PF) 50 MCG/ML 2 ML AMP ONE (08:19)
[2024-06-04] MEDS ORDERED: NEOSTIGMINE 1 MG/ML 10 ML VIAL ONE (08:19)
[2024-06-04] MEDS ORDERED: LIDOCAINE 1% INJ 10MG/ML (20 ML MDV) ONE (08:19)
[2024-06-04] MEDS ORDERED: ROCURONIUM 10 MG/ML (5 ML VIAL) IV ONE (08:19)
[2024-06-04] MEDS ORDERED: ROPIVACAINE 5 MG/ML 30 ML VIAL ONE (08:19)
[2024-06-04] MEDS ORDERED: PROPOFOL 10 MG/ML 20 ML VIAL IV ONE (08:19)
[2024-06-04] MEDS ORDERED: SUCCINYLCHOLINE CHLORIDE 200 MG/10 ML VIAL IV ONE (08:19)
[2024-06-04] MEDS: ceFAZolin 3 GM in SODIUM CHLORIDE 0.9% 100 ML IVPB PRN (08:22)
[2024-06-04] MEDS: LIDOCAINE 1%-EPI 1:100,000 20 ML VIAL SQ ONE (08:58)
[2024-06-04 09:36] VITALS: TEMP 97.7
[2024-06-04] MEDS: IV FLUID CONTINUATION 1,000 ML IV ONE (10:02)
--- NOTE | 2024-06-04 10:08 | P.OP ---
Date of Procedure: 06/04/24 Description of Procedure: SURGEON: NELIDA BUSBY MD PREOPERATIVE DIAGNOSES: 1. Morbid obesity due to excess calories 2. Body mass index of 56.4 3. Osteoarthritis of the knees. 4. Osteoarthritis of the lower back. 5. Hypertensive heart disease. 6. Gastroesophageal reflux disease 7. Hyperlipidemia 8. Generalized anxiety disorder 9. Diabetes type 2, non-insulin dependent 10. Depressive disorder POSTOPERATIVE DIAGNOSES: 1. Morbid obesity due to excess calories 2. Body mass index of 56.4 3. Osteoarthritis of the knees. 4. Osteoarthritis of the lower back. 5. Hypertensive heart disease. 6. Gastroesophageal reflux disease 7. Hyperlipidemia 8. Generalized anxiety disorder 9. Diabetes type 2, non-insulin dependent 10. Depressive disorder 11. Severe hepatomegaly with fatty liver disease OPERATION: 1. Robotic assisted daVinci Xi laparoscopic gastric bypass ABORTED 2. Diagnostic laparoscopy ANESTHESIA: Gen. local anesthetic ESTIMATED BLOOD LOSS: 1 mL SPECIMENS REMOVED: None COMPLICATIONS: None. FINDINGS: 1. Persistent severe hepatomegaly with fatty liver disease prohibiting procedure for gastric bypass INDICATIONS: The patient is a 43-year-old female who presents with morbid obesity, BMI 52.3. Patient was placed under strict dietary adherence to a low- carb high-protein diet with a targeted weight loss of 5% of 333 pounds, at least 15 pounds, goal weight 318 pounds. Despite multiple weeks of counseling, patient presented not obtaining her targeted weight loss. Patient was given the option for deferring her procedure however patient had elected for diagnostic laparoscopy with possible bariatric procedure. Benefits and risks of the procedure were described at length including discontinue surgery due to severe hepatomegaly. Informed consent was obtained. DESCRIPTION: The patient was brought into the operating room theater. Preoperatively she had received Heparin subcutaneously for DVT prophylaxis. Additionally she had Peridex oral solution as an oral decontaminant. After general induction, the abdomen was prepped and draped in standard sterile fashion. An Ioban draping was placed along the abdomen. At 15 cm from the xiphoid, proposed port sites were marked with indelible marker along the anterior axillary line bilaterally, mid axillary line bilaterally with each ports 10 cm from each other. A 5 mm 0 degrees laparoscopic trocar entry was performed along the left upper quadrant. The abdomen was insufflated to 15 mmHg pressure was tolerated well. Diagnostic laparoscopy demonstrated no injury to bowel, viscera, or mesentery. The liver was persistently large with fatty liver disease and hepatomegaly despite her time. An additional 8 mm trocars were placed on the right upper abdomen for better visualization of the liver. The liver edge was round and large including with moderate fatty liver deposits confirming moderate to severe hepatomegaly prohibiting progression of her case. With this finding, case was aborted. The incision was closed using subcuticular interrupted suture of 4-0 Monocryl. Dermabond was applied to the skin once the skin had been cleansed. At the end of the procedure, needle, sponge, and instrument count was verified correct by the surgical garment assembly supervisor. The patient was taken to the postanesthesia care unit in stable condition. Plan - Discharge Summary Discharge Rx Participant: No New Discharge Prescriptions: New Simethicone [Gas-X] 125 mg PO AC-TID PRN #20 capsule PRN Reason: Pain Acetaminophen Tab [Tylenol Tab] 1,000 mg PO Q6HR PRN #30 tablet PRN Reason: Pain Continue Venlafaxine HCl ER [Effexor XR] 150 mg PO HS Fexofenadine HCl 180 mg PO DAILY PRN PRN Reason: allergies metFORMIN HCL 500 mg PO HS Ergocalciferol [Vitamin D2 (1250 Mcg = 17014 Iu)] 50,000 unit PO WEEKLY Omeprazole [PriLOSEC] 40 mg PO HS Discharge Medication List Venlafaxine HCl ER [Effexor XR] 150 mg PO HS 01/18/24 [History] metFORMIN HCL 500 mg PO HS 01/18/24 [History] Ergocalciferol [Vitamin D2 (1250 Mcg = 65373 Iu)] 50,000 unit PO WEEKLY 02/15/24 [History] Fexofenadine HCl 180 mg PO DAILY PRN 03/05/24 [History] Omeprazole [PriLOSEC] 40 mg PO HS 05/30/24 [History] Acetaminophen Tab [Tylenol Tab] 1,000 mg PO Q6HR PRN #30 tablet 06/04/24 [Rx] Simethicone [Gas-X] 125 mg PO AC-TID PRN #20 capsule 06/04/24 [Rx] [facility] up [facility]ment(s[facility]Ref[facility] [place] [facility] - 06/06/24 3:00 pm Patient Instructions/Handouts: Non-Alcoholic Fatty Liver Disease (DC), Exploratory Laparoscopy (DC) Activity/Diet/Wound Care/Special Instructions: May shower. No bath tub soaks for two weeks until 06/18/24 Diet as tolerated. Use Tylenol, simethicone and ibuprofen or Aleve scheduled for the next 24-48 hours for best pain relief. Use ice along incisions for today to prevent swelling. Discharge Disposition: HOME SELF-CARE
[2024-06-04 10:28] LABS: Glucose,Whole Blood 107 mg/dL (70-110)
[2024-06-04 10:30] VITALS: RESP 18
[2024-06-04 10:44] VITALS: BP 123/83; PULSE 70
== END 2024-06-04 11:02 | disposition home or self-care (01) ==
LOC: 2ORMAIN 06:18 → UNDOADMIN 06:18 → OR 06:18 → EDSTATUS 08:15 → OR 11:02 → UNDODISIN 11:02 → EDSTATUS 13:25
PROVIDERS: ATTEND Surgery Plastic and Reconstructive Surgery
DX: E66.01 Morbid (severe) obesity due to excess calories (principal); K76.0 Fatty (change of) liver, not elsewhere classified; G89.18 Other acute postprocedural pain; K21.9 Gastro-esophageal reflux disease without esophagitis; E11.9 Type 2 diabetes mellitus without complications; M17.0 Bilateral primary osteoarthritis of knee; M47.816 Spondylosis without myelopathy or radiculopathy, lumbar region; I11.9 Hypertensive heart disease without heart failure; E78.5 Hyperlipidemia, unspecified; F41.1 Generalized anxiety disorder; F32.A Depression, unspecified; Z68.43 Body mass index [BMI] 50.0-59.9, adult; Z79.84 Long term (current) use of oral hypoglycemic drugs; Z79.899 Other long term (current) drug therapy
CPT/HCPCS: 81025; 64999; 49320; J2250; J0330; J1644; J1100; J2710; J0690; J2405; J2003; J3010; J2795; J2704; J1596

== ENCOUNTER → 2024-06-06 | Outpatient (CLI) | payer BC ==
[2024-06-06 13:14] VITALS: BP 157/94; PULSE 89; RESP 16; TEMP 97.8; BMI 54.5
--- NOTE | 2024-06-06 14:05 | P.BASOAP ---
Subjective Progress Note Date: 06/06/24 Went over diet goal of 1000 - 1200 kcal daily until 2 weeks before surgery. Plan for 30 days. Objective - Vital Signs Vital signs: Vital Signs Temp 97.8 F 06/06/24 13:09 Pulse 89 06/06/24 13:09 Resp 16 06/06/24 13:09 BP 157/94 06/06/24 13:09 Pulse Ox FiO2 Intake & Output 06/05/24 06/06/24 06/06/24 18:59 06:59 18:59 Weight 149.685 kg Assessment/Plan Plan: Date: 06/06/24 Initial Weight: Initial BMI: Current Weight: 149.685 kg Current BMI: 54.5 Type of Surgery: Total Volume in Band: Previous Volume: Volume Removed: Volume Added: Band Size:
== END ==
LOC: BARWHC3 12:59
PROVIDERS: ATTEND Surgery Plastic and Reconstructive Surgery
DX: F17.210 Nicotine dependence, cigarettes, uncomplicated (principal); E66.01 Morbid (severe) obesity due to excess calories; Z68.43 Body mass index [BMI] 50.0-59.9, adult; Z91.048 Other nonmedicinal substance allergy status
CPT/HCPCS: 99211

== ENCOUNTER 2024-07-09 09:08 | Inpatient (IN) | payer BC ==
--- NOTE | 2024-07-09 09:04 | P.GSHP ---
History of Present Illness H&P Date: 07/09/24 CHIEF COMPLAINT: Morbid obesity HISTORY OF PRESENT ILLNESS: Antoinette Lozano is a 44-year-old female who comes with lifelong morbid obesity. As result of morbid obesity, she has developed diabetes type 2, hypertensive heart disease, obstructive sleep apnea, hyperlipidemia, osteoarthritis of the hips and knees. She has completed medical supervised weight loss. She completed medical including cardiac assessment. She has completed psychological risk assessment. All surgical options were reviewed. She elected for gastric bypass. Additionally, patient recently had aborted procedure due to inadequate weight loss and severe fatty liver disease. She presents with additional weight loss of 15 pounds from a month ago. At height of 5 feet 5 inches, her ideal body weight is 154 pounds. Her highest documented weight is 338 pounds, BMI 56.4. Her goal of weight for today's procedure is 300 pounds 5 weeks ago. She was 324 pounds, 5 weeks ago. Her body mass index is 50.2. She is 160 pounds overweight. PAST MEDICAL HISTORY: 1. Morbid obesity due to excess calories 2. Body mass index of 56.4 3. Osteoarthritis of the knees. 4. Osteoarthritis of the lower back. 5. Hypertensive heart disease. 6. Gastroesophageal reflux disease 7. Hyperlipidemia 8. Generalized anxiety disorder 9. Diabetes type 2, non-insulin dependent 10. Depressive disorder PAST SURGICAL HISTORY: 1. Cholecystectomy 2. Hysterectomy 3. Lysis of adhesions 4. Bilateral carpal tunnel release 5. Colonoscopy 6. Upper endoscopy HOME MEDICATIONS: Reviewed list ALLERGIES: Reviewed list SOCIAL HISTORY: Past tobacco use. FAMILY HISTORY: No family history of ulcerative colitis disease or Crohn's disease. Family history of morbid obesity. No lupus in the family. REVIEW OF ORGAN SYSTEMS: CONSTITUTIONAL: At height of 5 feet 5 inches, her ideal body weight is 149 pounds. Her highest documented weight is 338 pounds, BMI 56.4. Her goal of weight for today's procedure is 318 pounds. She comes in 324 pounds. Her body mass index is 52.3. She is 175 pounds overweight. HEENT: Denies any active troubles with vision or hearing. ENDOCRINE: Has diabetes. Has hypothyroidism. CARDIOVASCULAR: Past reports of palpitations or heart attacks or chest pain. RESPIRATORY: Has daytime somnolence. GASTROINTESTINAL: Denies any bright red blood per rectum. Has gastroesophageal reflux disease. MUSCULOSKELETAL: Has lower back pain and joint pain. Has osteoarthritis of the knees. NEURO: No headaches. No seizure disorders. PSYCH: Has depression. No suicidal ideation. RHEUMATOLOGIC: No lupus. No rheumatoid arthritis. HEMATOLOGIC: Denies any abnormal bleeding or bruising. No personal history of D VTs. SKIN: Has rash. No skin cancer. PHYSICAL EXAM: VITAL SIGNS: Height 5 foot 5 inches, weight 324 pounds. BMI 53.9 GENERAL: Well-developed in no acute distress. HEENT: No scleral icterus. Extraocular movements grossly intact. Hears conversational speech. No nasal drainage. NECK: Supple without lymphadenopathy. CHEST: Nonlabored respirations with equal bilateral excursions. CARDIOVASCULAR: Regular rate and regular rhythm. Distal 2+ pulses. ABDOMEN: Obese, soft, nontender, nondistended. MUSCULOSKELETAL: No clubbing, cyanosis. NEURO: No focal or lateralizing signs. Cranial nerves 2 through 12 grossly within normal limits. PSYCH: Appropriate affect. Alert and oriented to person, place and time. SKIN: Good skin turgor. Well perfused. ASSESSMENT: 1. Morbid obesity due to excess calories 2. Body mass index of 56.4 3. Osteoarthritis of the knees. 4. Osteoarthritis of the lower back. 5. Hypertensive heart disease. 6. Gastroesophageal reflux disease 7. Hyperlipidemia 8. Generalized anxiety disorder 9. Diabetes type 2, non-insulin dependent 10. Depressive disorder PLAN: 1. Bariatric options between a sleeve, band and a Nery-en-Y gastric bypass were reviewed in detail. The patient elected for a gastric bypass. Robotic assisted approach described. 2. The [place] [facility] Data was also reviewed with benefits and risks as described. 3. An 8 page second-generation bariatric consent form was reviewed in detail including potential of bleeding, infection, leaks, adequate weight loss, nutritional deficiencies which the patient demonstrated understanding of the risks. 4. A 2 week high-protein low caloric 800 kcal diet described to address hepatomegaly. 5. Preoperative labs including complete metabolic panel and CBC with type and screen recommended. 6. DVT prophylaxis per [place] [facility]. 7. Antibiotic prophylaxis. 8. Inpatient hospitalization anticipated for more than 2 nights. 9. All questions and concerns were addressed with the patient. 10. Overall, patient has expressed understanding of bariatric care including postoperative diet and commitment of lifestyle. Patient should benefit from surgical intervention for correction of her morbid obesity. 11. Extensive counseling for over 3 to 4 weeks with goal weight loss to 300 pounds was described to the patient including at her recent bariatric visit. 12. Patient was extensively counseled that lack of obtaining goal weight puts her at increased risk for complications due to the risk of severe hepatomegaly. Past Medical History Past Medical History: GERD/Reflux, Liver Disease Additional Past Medical History / Comment(s): Pre-diabetic. Fatty liver. History of Any Multi-Drug Resistant Organisms: None Reported Past Surgical History: Cholecystectomy Additional Past Surgical History / Comment(s): Eye surgery at age 3, Diagnostic Laparoscopy-Gastric Bypass aborted r/t hepatomegaly-06/04/24. Past Anesthesia/Blood Transfusion Reactions: No Reported Reaction Additional Past Anesthesia/Blood Transfusion Reaction / Comment(s): No hx blood transfusion. Smoking Status: Former smoker - Past Family History Father Family Medical History: No Reported History Medications and Allergies Home Medications Medication Instructions Recorded Confirmed Type Venlafaxine HCl ER [Effexor XR] 150 mg PO HS 01/18/24 06/06/24 History metFORMIN HCL 500 mg PO HS 01/18/24 06/06/24 History Ergocalciferol [Vitamin D2 (1250 50,000 unit PO WEEKLY 02/15/24 06/06/24 History Mcg = 67479 Iu)] Fexofenadine HCl 180 mg PO DAILY PRN 03/05/24 06/06/24 History Omeprazole [PriLOSEC] 40 mg PO HS 05/30/24 06/06/24 History Acetaminophen Tab [Tylenol Tab] 1,000 mg PO Q6HR PRN #30 tablet 06/04/24 06/06/24 Rx Allergies Allergy/AdvReac Type Severity Reaction Status Date / Time adhesive AdvReac Rash/Hives Verified 07/04/24 15:02
[~2024-07-09 09:08] MED LIST changes: -HYDROmorphone 0.5 MG/0.5 ML SYRINGE IVP PRN; -LACTATED RINGERS 1,000 ML IV SCH; -LIDOCAINE 1% (10MG/ML) FOR IV START INTRADERMA PRN; -ONDANSETRON 4 MG/2 ML VIAL IVP ONE; +ONDANSETRON 4 MG/2 ML VIAL IVP PRN; +ceFAZolin 3 GM in SODIUM CHLORIDE 0.9% 100 ML IVPB PRN; -droPERidol 2.5 MG/ML VIAL IVP ONE
[2024-07-09] MEDS: IV FLUID CONTINUATION 1,000 ML IV ONE ×3 (09:33→14:28)
--- NOTE | 2024-07-09 09:46 | P.HPADDEND ---
H&P Addendum H&P Addendum Date: 07/09/24 Patient comes in with increased weight gain in the past week. She did not achieve her goal. Due to high risk nature of procedure, alternatives of sleeve gastrectomy described. Patient agreed with sleeve gastrectomy instead of gastric bypass.
[2024-07-09] MEDS: DEXAMETHASONE SOD PHOSPHATE 4 MG/ML 1 ML VIAL IV ONE (09:56)
[2024-07-09] MEDS: ALVIMOPAN 12 MG CAPSULE PO PRN (09:56)
[2024-07-09] MEDS: PANTOPRAZOLE 40 MG/10 ML VIAL IVP STA (09:56)
[2024-07-09] MEDS: ACETAMINOPHEN TAB 500 MG TAB PO PRN (09:56)
[2024-07-09] MEDS: ONDANSETRON 4 MG/2 ML VIAL IVP ONE (09:57)
[2024-07-09] MEDS: CHLORHEXIDINE GLUCONATE 15 ML CUP MUCOUS MEM STA (09:57)
[2024-07-09] MEDS: SCOPOLAMINE 1 MG/72 HR PATCH TRANSDERM STA (09:57)
[2024-07-09] MEDS: LACTATED RINGERS 1,000 ML IV SCH (09:58)
[2024-07-09 10:03] LABS: Glucose,Whole Blood 93 mg/dL (70-110)
[2024-07-09 10:09] LABS: Basophils % (A) 0 %; Eosinophils # (A) 0.1 k/uL (0-0.7); Eosinophils % (A) 1 %; HCT 43.6 % (34.0-46.0); HGB 13.6 gm/dL (11.4-16.0); Hypochromasia Slight; Lymphocytes # (A) 1.8 k/uL (1.0-4.8); Lymphocytes % (A) 22 %; MCH 24.7 pg (25.0-35.0); MCHC 31.2 g/dL (31.0-37.0); MCV 79.1 fL (80.0-100.0); Mean Platelet Volume 8.6; Monocytes # (A) 0.3 k/uL (0-1.0); Monocytes % (A) 4 %; Neutrophils # (A) 6.1 k/uL (1.3-7.7); Neutrophils % (A) 72 %; Platelet Count 260 k/uL (150-450); RBC 5.51 m/uL (3.80-5.40); RDW 14.3 % (11.5-15.5); WBC 8.4 k/uL (3.8-10.6)
[2024-07-09] MEDS: MIDAZOLAM 2 MG/2 ML VIAL IV ONE (10:13)
[2024-07-09 10:19] LABS: ALT 34 U/L (4-34); AST 36 U/L (14-36); African American GFR (CKD) >90 (>60 ml/min/1.73 sqM); Albumin 4.7 g/dL (3.5-5.0); Alkaline Phosphatase 123 U/L (38-126); Anion Gap 16 mmol/L; Blood Urea Nitrogen 13 mg/dL (7-17); Calcium 9.5 mg/dL (8.4-10.2); Carbon Dioxide 20 mmol/L (22-30); Chloride 103 mmol/L (98-107); Glucose 104 mg/dL (74-99); Non-African American GFR(CKD) 85 (>60 ml/min/1.73 sqM); Potassium 3.5 mmol/L (3.5-5.1); Sodium 139 mmol/L (137-145); Total Bilirubin 0.8 mg/dL (0.2-1.3); Total Protein 8.1 g/dL (6.3-8.2)
[2024-07-09] MEDS: ENOXAPARIN 30 MG/0.3 ML SYRINGE SQ PRN (10:23)
--- NOTE | 2024-07-09 10:24 | P.ANPRN ---
Procedure Note - Anesthesia - Nerve Block Performed Bilateral Erector Spinae Single Time Out Performed: Yes Date of Procedure: 07/09/24 Procedure Start Time: 10:12 Procedure Stop Time: 10:17 Location of Patient: PreOp Indication: Acute Post-Operative Pain, Analgesia, Requested by Surgeon Sedation Type: Sedate with meaningful contact maintained Preparation: Sterile Prep Position: Prone Catheter: None Needle Types: Pajunk Needle Gauge: 21 Ultrasound used to visualize needle placement: Yes Ultrasound used to observe medication spread: Yes Injectate: 0.5% Ropivacaine (see comment for volume) ([id number], P2cifyyo level---Each side) Blood Aspirated: No Pain Paresthesia on Injection Noted: No Resistance on Injection: Normal Image Stored and Saved: Yes Events: Uneventful and Well Tolerated
[2024-07-09] MEDS ORDERED: ROCURONIUM 10 MG/ML (5 ML VIAL) IV ONE (11:17)
[2024-07-09] MEDS ORDERED: PROPOFOL 10 MG/ML 20 ML VIAL IV ONE (11:17)
[2024-07-09] MEDS ORDERED: MIDAZOLAM 2 MG/2 ML VIAL ONE (11:17)
[2024-07-09] MEDS ORDERED: LIDOCAINE 1% INJ 10MG/ML (20 ML MDV) ONE (11:17)
[2024-07-09] MEDS ORDERED: SUCCINYLCHOLINE CHLORIDE 200 MG/10 ML VIAL IV ONE (11:17)
[2024-07-09] MEDS ORDERED: fentaNYL (PF) 50 MCG/ML 2 ML AMP ONE (11:17)
[2024-07-09] MEDS ORDERED: GLYCOPYRROLATE 0.2 MG/ML 2 ML VIAL ONE (11:17)
[2024-07-09] MEDS ORDERED: NEOSTIGMINE 1 MG/ML 10 ML VIAL ONE (11:17)
[2024-07-09] MEDS ORDERED: ROPIVACAINE 5 MG/ML 30 ML VIAL ONE (11:17)
[2024-07-09] MEDS ORDERED: DEXAMETHASONE SOD PHOSPHATE 4 MG/ML 1 ML VIAL ONE (11:17)
[2024-07-09] MEDS: LIDOCAINE 1%-EPI 1:100,000 20 ML VIAL SQ ONE (11:46)
[2024-07-09 13:21] LABS: Glucose,Whole Blood 163 mg/dL (70-110)
[2024-07-09] MEDS ORDERED: NALOXONE 0.4 MG/ML 1 ML VIAL IV PRN ×2 (13:21→13:25)
[2024-07-09] MEDS ORDERED: diphenhydrAMINE 50 MG/ML 1 ML VIAL IVP PRN (13:21)
[2024-07-09] MEDS ORDERED: HYDROmorphone 1 MG/ML 1 ML SYRINGE IVP PRN (13:21)
[2024-07-09] MEDS: HYDROmorphone 0.5 MG/0.5 ML SYRINGE IVP PRN (13:24)
--- NOTE | 2024-07-09 13:37 | P.OP ---
Date of Procedure: 07/09/24 Description of Procedure: SURGEON: NELIDA BUSBY MD PREOPERATIVE DIAGNOSES: 1. Morbid obesity due to excess calories 2. Body mass index of 56.4 3. Osteoarthritis of the knees. 4. Osteoarthritis of the lower back. 5. Hypertensive heart disease. 6. Gastroesophageal reflux disease 7. Hyperlipidemia 8. Generalized anxiety disorder 9. Diabetes type 2, non-insulin dependent 10. Depressive disorder 11. Hepatomegaly POSTOPERATIVE DIAGNOSES: 1. Morbid obesity due to excess calories 2. Body mass index of 56.4 3. Osteoarthritis of the knees. 4. Osteoarthritis of the lower back. 5. Hypertensive heart disease. 6. Gastroesophageal reflux disease 7. Hyperlipidemia 8. Generalized anxiety disorder 9. Diabetes type 2, non-insulin dependent 10. Depressive disorder 11. Severe hepatomegaly with fatty liver disease OPERATION: 1. Robotic assisted daVinci Xi laparoscopic sleeve gastrectomy with 40-Bulgarian bougie, multiport. 2. Intraoperative esophagogastroduodenoscopy. ANESTHESIA: Gen. local anesthetic ESTIMATED BLOOD LOSS: 5 mL SPECIMENS REMOVED: Sleeve gastrectomy COMPLICATIONS: None. FINDINGS: 1. Negative intraoperative esophagogastrojejunoscopy leak test. 2. Moderate hepatomegaly and no large hiatus hernia. 3. Total of 6 staplers used including 1 - 60 mm green, 5 - 60 mm blue robot loads used to create the gastric sleeve. 4. Sleeve gastrectomy, 27 x 4 cm INDICATIONS: Antoinette Lozano is a 44-year-old female who comes with lifelong morbid obesity. As result of morbid obesity, she has developed diabetes type 2, hypertensive heart disease, obstructive sleep apnea, hyperlipidemia, osteoarthritis of the hips and knees. She has completed medical supervised weight loss. She completed medical including cardiac assessment. She has completed psychological risk assessment. All surgical options were reviewed. She initially elected for gastric bypass. Additionally, patient recently had aborted procedure due to inadequate weight loss and severe fatty liver disease. She presents with additional weight loss of 15 pounds from a month ago. At height of 5 feet 5 inches, her ideal body weight is 154 pounds. Her highest documented weight is 338 pounds, BMI 56.4. Her goal of weight for today's procedure is 300 pounds 5 weeks ago. She was 324 pounds, 5 weeks ago. Her body mass index is 50.2. She is 160 pounds overweight. She presents at 309 pounds not making remark her target goal despite moderate adjustments and education. Options for procedure sleeve gastrectomy described due to severe persistent hepatomegaly. Patient opted for sleeve gastrectomy after further discussion. All surgical options for morbid obesity had been described using the [place] bariatric surgery collaborative comorbidity resolution including complication risk score. A second-generation bariatric consent form was described in detail including the possibility of protein malnutrition, leaks, gastric stricture, venous thrombosis, gastroesophageal reflux disease, need for further surgery for which she demonstrated understanding. Benefits and risks of the procedure were described at length. Informed consent was obtained. DESCRIPTION: The patient was brought into the operating room theater. Preoperatively she had received Lovenox subcutaneously for DVT prophylaxis. Additionally she had Peridex oral solution as an oral decontaminant. After general induction, the abdomen was prepped and draped in standard sterile fashion. An Ioban draping was placed along the abdomen. A robotic da Zan Xi system was prepped and primed. At 15 cm from the xiphoid, proposed port sites were marked with indelible marker along the anterior axillary line bilaterally, mid axillary line bilaterally with each ports were marked 10 to 15 cm from each other. The robotic stapler port was marked for the right midclavicular line. A 5 mm 0 degrees laparoscopic trocar entry was performed along the left upper quadrant. The abdomen was insufflated to 15 mmHg pressure was tolerated well. Diagnostic laparoscopy demonstrated no injury to bowel, viscera, or mesentery. No evidence of large hiatus hernia was identified. The liver edge was persistently thickened with fatty liver deposits, mild to moderate despite extensive dietary surveillance and counseling for over 6 to 8 weeks. As a result of this finding, sleeve gastrectomy opted. A 8 mm port was placed along the left upper abdominal wall after exchanging the 5 mm port. A separate 8 mm port was placed along the left lateral abdominal wall. Please note that the ports were placed at least 20 cm away from the target anatomy. Care was taken to check each robotic arms were safely away from collision with the bed or the patient. At the epigastrium, a medium sized Candelaria liver retractor was placed under direct visualization with the Iron [employer] Mechanic placed under the right shoulder of the patient. Next, 12-mm robot stapler port was placed along the right upper quadrant. The camera 8-mm port was maintained along the epigastrium. The patient was repositioned in reverse Trendelenburg position at 21-degrees after lowering the bed. The robot was docked along the left side of the patient. Using a grasper for arm 4, a vessel sealer for arm 3, including grasper for arm 1, the robotic system was docked and primed as described. Instruments were interchanged by the assistant spa manager for stapler loads. The camera was placed at 30- degrees down. I had sat at the console. The pylorus was identified and 6 cm proximally along the greater curvature of the stomach, the short gastrics were mobilized upwards to the angle of His using a vessel sealer. Hemostasis was excellent during this portion of the procedure. Next, the upper pole of the stomach was adherent to the left jayda, which was gently dissected free using atraumatic grasper. I went to the head of the bed and placed 40-Bulgarian blunt bougie into the stomach. The bougie was readjusted by the nurse bottle labeler. Robotic stapler green 60 mm x 1, and blue 60 mm loads x 5 were used to create the sleeve. Initial firing was across the antrum of the stomach towards the angle of His. The staple line was linear without corkscrewing. The space from the angularis incisura of the sleeve was approximately 4 cm. I then went to the head of the bed to perform the intraoperative esophagogastroduodenoscopy leak test. The bougie was withdrawn. The upper pole of the stomach was bathed using normal saline solution. The scope was withdrawn with careful inspection along the staple line for which no leaks were found along the entire length. Additionally,the sleeve was completely hemostatic without any encroachment along the angularis incisura. Its topology was a soft "J". No stricture was encountered upon placement of the scope. The GI tract was desufflated. The patient tolerated this portion of the procedure well. The scope was completely withdrawn. The robot was undocked. I then rescrubbed into case, whereby the irrigation fluid was aspirated from the abdominal cavity. Tisseel fibrin sealant was placed along the entire staple length. Once dried the Candelaria liver retractor was removed. Attention was now brought to removal of the specimen. The distal end of the sleeve gastrectomy specimen was brought out through the 12 mm port at the left upper quadrant. The specimen was gently removed en total. No contamination had occurred during this process. All instruments and pneumoperitoneum including irrigation fluid was removed from the abdominal cavity. The 12 mm port site was closed using 0-Vicryl and Greg Ceja and irrigated with diluted hydrogen peroxide. The final incisions were closed using subcuticular interrupted suture of 4-0 Monocryl. OptiFoam dressing was placed along the stomach extraction site including all incisions due to adhesive allergy. The sleeve specimen was measured and checked also for leaks which none were found. At the end of the procedure, needle, sponge, and instrument count was verified correct by the surgical scrub technician. The patient was taken to the postanesthesia care unit in stable condition. The patient had tolerated the procedure well. Intraoperative films and findings were reviewed with the patient's family.
[2024-07-09] MEDS: SODIUM CHLORIDE 0.9% 1,000 ML IV SCH (15:06)
[2024-07-09] MEDS: fentaNYL PCA 500 MCG/50 ML BAG IV SCH (15:14)
[2024-07-09] MEDS: ALBUTEROL NEBULIZED 2.5 MG/3 ML INHALATION SCH (15:45)
[2024-07-09] MEDS: ceFAZolin 3 GM in SODIUM CHLORIDE 0.9% 100 ML IVPB SCH (16:51)
[2024-07-09] MEDS: HYOSCYAMINE ORAL DROPS 1.875 MG/15 ML BOTTLE PO SCH (17:04)
[2024-07-09] MEDS: SIMETHICONE 40 MG/0.6 ML DROPS 2,000 MG/30 ML BOTTLE PO SCH (17:05)
[2024-07-09] MEDS: ONDANSETRON 4 MG/2 ML VIAL IVP SCH (17:59)
[2024-07-09] MEDS: DEXAMETHASONE SOD PHOSPHATE 10 MG/ML 1 ML VIAL IVP ONE (18:01)
[2024-07-09] MEDS: ACETAMINOPHEN IV (For NPO) 1,000 MG in EMPTY BAG 1 BAG IVPB SCH (18:03)
[2024-07-09] MEDS: PANTOPRAZOLE 40 MG/10 ML VIAL IV SCH (21:06)
[2024-07-09] MEDS: 0.9% NACL WITH KCL 20 MEQ/L 1,000 ML IV SCH (22:56)
[2024-07-10] MEDS: DEXAMETHASONE SOD PHOSPHATE 4 MG/ML 1 ML VIAL IVP SCH (00:51)
[2024-07-10 08:10] LABS: Basophils # (A) 0.01 X 10*3/uL (0.00-0.10); Basophils % (A) 0.1 %; Eosinophils # (A) 0 X 10*3/uL (0.04-0.35); Eosinophils % (A) 0 %; HCT 39.9 % (37.2-46.3); HGB 12.4 g/dL (12.0-15.0); Lymphocytes # (A) 0.68 X 10*3/uL (0.90-5.00); MCH 24.9 pg (27.0-32.0); MCHC 31.1 g/dL (32.0-37.0); MCV 80.1 FL (80.0-97.0); Mean Platelet Volume 12.1 FL (9.5-12.2); Monocytes % (A) 0.9 %; NRBC Per 100 WBC 0.03 X 10*3/uL (0.00-0.01); Neutrophils # (A) 10.56 X 10*3/uL (1.80-7.70); Neutrophils % (A) 92.6 %; Platelet Count 276 X 10*3/uL (140-440); RBC 4.98 X 10*6/uL (4.10-5.20); RDW 14.6 % (11.5-14.5); WBC 11.39 X 10*3/uL (4.50-10.00)
[2024-07-10 08:37] LABS: Blood Urea Nitrogen 9.8 mg/dL (9.0-27.0); Carbon Dioxide 20.4 mmol/L (21.6-31.8); Chloride 102 mmol/L (96-109); Phosphorus 2.4 mg/dL (2.4-5.1); Potassium 4.3 mmol/L (3.5-5.5); Sodium 135 mmol/L (135-145)
[2024-07-10] MEDS: SODIUM CHLORIDE 0.9% 1,000 ML IV SCH (10:39)
[2024-07-10] MEDS: ENOXAPARIN 40 MG/0.4 ML SYRINGE SQ SCH (10:39)
[2024-07-10 11:57] VITALS: RESP 18
[2024-07-10 12:14] VITALS: BMI 49.9
[2024-07-10] MEDS: 0.9% NACL WITH KCL 20 MEQ/L 1,000 ML IV SCH (13:11)
--- NOTE | 2024-07-10 13:20 | P.DS ---
Providers Date of admission: 07/09/24 09:08 Expected date of discharge: 07/10/24 Attending physician: Aline Moss Primary care physician: Samson Paula [facility] Course: Discharge diagnosis 1. Morbid obesity due to excess calories 2. Body mass index of 56.4 3. Osteoarthritis of the knees. 4. Osteoarthritis of the lower back. 5. Hypertensive heart disease. 6. Gastroesophageal reflux disease 7. Hyperlipidemia 8. Generalized anxiety disorder 9. Diabetes type 2, non-insulin dependent 10. Depressive disorder 11. Severe hepatomegaly with fatty liver disease 12. Leukocytosis likely reactive from [facility] course Antoinette Lozano is a 44-year-old female who comes with lifelong morbid obesity. She is status post robotic assisted laparoscopic sleeve gastrectomy. Patient tolerated surgery well. Her pain is controlled. She is tolerating diet. She has been up and ambulating. She denies any difficulty urinating. She is stable for discharge. Physician Purse Framer note has been reviewed by physician. Signing provider agrees with the documented findings, assessment, and plan of care. Patient Condition at Discharge: Stable Plan - Discharge Summary Discharge Rx Participant: Yes New Discharge Prescriptions: New bisacodyL [Dulcolax] 5 mg PO DAILY PRN #10 tab PRN Reason: Constipation Omeprazole [PriLOSEC] 40 mg PO DAILY #90 cap ursodioL [Ursodiol] 300 mg PO BID 30 Days #60 capsule Simethicone 40 mg/0.6 ml Drops [Mylicon Drops] 40 mg PO PCHS PRN #30 ml PRN Reason: Gas Ondansetron Odt [Zofran Odt] 4 mg PO Q8HR PRN #9 tab PRN Reason: Nausea Acetaminophen Tab [Tylenol] 1,000 mg PO Q6HR PRN #30 tablet PRN Reason: Pain Continue Fexofenadine HCl 180 mg PO DAILY PRN PRN Reason: allergies metFORMIN HCL 500 mg PO HS Discontinued Venlafaxine HCl ER [Effexor XR] 150 mg PO HS Ergocalciferol [Vitamin D2 (1250 Mcg = 91161 Iu)] 50,000 unit PO WEEKLY Omeprazole [PriLOSEC] 40 mg PO HS Acetaminophen Tab [Tylenol Tab] 1,000 mg PO Q6HR PRN #30 tablet PRN Reason: Pain Discharge Medication List metFORMIN HCL 500 mg PO HS 01/18/24 [History] Fexofenadine HCl 180 mg PO DAILY PRN 03/05/24 [History] Acetaminophen Tab [Tylenol] 1,000 mg PO Q6HR PRN #30 tablet 07/10/24 [Rx] Omeprazole [PriLOSEC] 40 mg PO DAILY #90 cap 07/10/24 [Rx] Ondansetron Odt [Zofran Odt] 4 mg PO Q8HR PRN #9 tab 07/10/24 [Rx] Simethicone 40 mg/0.6 ml Drops [Mylicon Drops] 40 mg PO PCHS PRN #30 ml 07/10/24 [Rx] bisacodyL [Dulcolax] 5 mg PO DAILY PRN #10 tab 07/10/24 [Rx] ursodioL [Ursodiol] 300 mg PO BID 30 Days #60 capsule 07/10/24 [Rx] [facility]Ref[facility] [place] [facility] [place] [facility] 9:00 am Activity/Diet/Wound Care/Special Instructions: Liquid diet only for 2 weeks No lifting over 4 pounds in 4 weeks May Shower. No soaking in bath tubs for 2 weeks Please notify your surgeon if you develop nausea and vomiting including new onset of abdominal pain. Continue to use incentive spirometry to prevent pneumonias. Please continue to ambulate at home to prevent blood clots in legs. Follow-up at the bariatric center. May shower. Dressings to be discontinued by surgeon in the office. Drink 64 oz of fluid daily. Start protein shakes on . Notify bariatric center for temp over 101.0, increased pain, drainage from incisions. No straws or carbonated beverages. Liquid diet only. Sugar content should be less than 6 g to avoid dumping syndrome. Take MOM for constipation. CRUSH, OPEN, OR CUT TABLETS LARGER THAN A SIZE OF A TIC TAC Discharge Disposition: HOME SELF-CARE
[2024-07-10 15:51] VITALS: BP 129/76; PULSE 63; TEMP 97.8
--- NOTE | 2024-07-10 22:01 | CONS ---
CONSULTATION CHIEF COMPLAINT: Morbid obesity. HISTORY OF PRESENT ILLNESS: This lady is brought in for an elective gastric stapling. She is in relatively good health. She has been diagnosed as being prediabetic. REVIEW OF SYSTEMS: She denies any headaches, chest pain, shortness of breath, fever, chills, abdominal pain, urinary complaints, abnormal bowel habits, etc. Past medical history, family history, personal and social histories reveal that she is not allergic to any medication. MEDICATIONS: She is on, 1. Metformin 500 mg once a day. 2. Albuterol. SOCIAL HISTORY: She does smoke. PHYSICAL EXAMINATION: VITAL SIGNS: Normal. HEAD, EARS, EYES, NOSE, MOUTH AND THROAT: Normal. CHEST: Clear. CARDIAC: Normal. ABDOMEN: Protuberant, soft and nontender without any visceromegaly or masses. Bowel sounds present. EXTREMITIES: Normal. NEUROLOGICAL: She is intact. ASSESSMENT: She is admitted to the hospital with diagnoses of, 1. Morbid obesity. 2. Prediabetes. RECOMMENDATIONS: None. Thank you respectfully, HANH / IJN: [id number] /
--- NOTE | 2024-07-11 02:52 | PN ---
PROGRESS NOTE CHIEF COMPLAINT: Morbid obesity. HISTORY OF PRESENT ILLNESS: This lady is doing well postoperatively and expects to go home today. PHYSICAL EXAMINATION: GENERAL: She is awake and alert. VITAL SIGNS: Normal. CHEST: Clear. CARDIAC EXAM: Normal. IMPRESSION: 1. Status post gastric stapling. 2. Morbid obesity. PLAN: Probably home today. MMODL / IJN: [id number] /
== END 2024-07-10 15:33 | disposition home or self-care (01) | DRG 621 ==
LOC: 2ORMAIN 09:08 → 4SSUR 12:51
PROVIDERS: ADMIT Surgery Plastic and Reconstructive Surgery; ATTEND Surgery Plastic and Reconstructive Surgery
PROC: 8E0W4CZ Robotic Assisted Procedure of Trunk Region, Percutaneous Endoscopic Approach (ICD-10-PCS; principal; 2024-07-09 11:00)
PROC: 0DB64Z3 Excision of Stomach, Percutaneous Endoscopic Approach, Vertical (ICD-10-PCS; principal; 2024-07-09 11:00)
PROC: 0DJ08ZZ Inspection of Upper Intestinal Tract, Via Natural or Artificial Opening Endoscopic (ICD-10-PCS; principal; 2024-07-09 11:00)
DX: E66.01 Morbid (severe) obesity due to excess calories (principal); R16.0 Hepatomegaly, not elsewhere classified; E11.9 Type 2 diabetes mellitus without complications; E78.5 Hyperlipidemia, unspecified; D72.829 Elevated white blood cell count, unspecified; Z68.43 Body mass index [BMI] 50.0-59.9, adult; I11.9 Hypertensive heart disease without heart failure; F32.A Depression, unspecified; K76.0 Fatty (change of) liver, not elsewhere classified; F17.200 Nicotine dependence, unspecified, uncomplicated; M16.0 Bilateral primary osteoarthritis of hip; M17.0 Bilateral primary osteoarthritis of knee; K21.9 Gastro-esophageal reflux disease without esophagitis; G47.33 Obstructive sleep apnea (adult) (pediatric); F41.1 Generalized anxiety disorder; M19.09 Primary osteoarthritis, other specified site; T38.0X5A Adverse effect of glucocorticoids and synthetic analogues, initial encounter; Z79.899 Other long term (current) drug therapy; Z79.84 Long term (current) use of oral hypoglycemic drugs; Z91.119 Patient's noncompliance with dietary regimen due to unspecified reason; Z71.3 Dietary counseling and surveillance
CPT/HCPCS: 64468; 80051; 80053; 81025; 82310; 82565; 83735; 84100; 84520; 85025; 86850; 86900; 86901; 88307; 94640; 94760

== ENCOUNTER → 2024-07-11 | Outpatient (CLI) | payer BC ==
--- NOTE | 2024-07-11 12:42 | FL ---
EXAMINATION TYPE: FL barium swallow DATE OF EXAM: 07/11/2024 CLINICAL HISTORY: Status post gastric sleeve Contrast: Omnipaque 350 50 mL The patient ingested contrast without difficulty or delay. Noted are postsurgical changes of gastric sleeve. There is no evidence for leak or obstruction. Contrast is noted within the duodenum. IMPRESSION: Post-surgical change of gastric sleeve without evidence for obstruction or leak at this point in time. [facility], , 07/11/2024 12:40 PM
== END | disposition home or self-care (01) ==
LOC: RADFLMAIN 10:14
PROVIDERS: ATTEND Surgery Plastic and Reconstructive Surgery
DX: R13.10 Dysphagia, unspecified (principal); Z98.84 Bariatric surgery status
CPT/HCPCS: 74220; Q9967

== ENCOUNTER → 2024-07-11 | Outpatient (CLI) | payer BC ==
--- NOTE | 2024-07-11 11:36 | P.BASOAP ---
Subjective Progress Note Date: 07/11/24 CHIEF COMPLAINT: Morbid obesity HISTORY OF PRESENT ILLNESS: Antoinette Lozano is a 44-year-old female status post sleeve gastrectomy 07/09/2024. She is postop day 2. She completed her swallow study. No reflux disease. Pain tolerable. At height of 5 feet 5 inches, her ideal body weight is 154 pounds. Her highest documented weight is 338 pounds, BMI 56.4. She comes in 317 pounds. Her prior weight weight was 330 pounds. She has lost 13 pounds in 5 weeks. Lifetime weight loss 21 pounds. Percent excess weight loss 11%. She is 160 pounds overweight. Current BMI 52.3. PHYSICAL EXAM: VITAL SIGNS: Height 5 foot 5 inches, weight 317 pounds. BMI 52.3 GENERAL: Well-developed in no acute distress. HEENT: No scleral icterus. Extraocular movements grossly intact. Hears conversational speech. No nasal drainage. NECK: Supple without lymphadenopathy. CHEST: Nonlabored respirations with equal bilateral excursions. CARDIOVASCULAR: Regular rate and regular rhythm. Distal 2+ pulses. ABDOMEN: Incisions clean dry intact. Optifoam dressing present. No signs of infection. MUSCULOSKELETAL: No clubbing, cyanosis. NEURO: No focal or lateralizing signs. Cranial nerves 2 through 12 grossly within normal limits. PSYCH: Appropriate affect. Alert and oriented to person, place and time. SKIN: Good skin turgor. Well perfused. STUDIES: Esophagram independently reviewed demonstrates no leak or obstruction. PATHOLOGY: Pathology pending from sleeve gastrectomy. ASSESSMENT: 1. Morbid obesity due to excess calories 2. Body mass index of 56.4 to 52.3 3. Osteoarthritis of the knees. 4. Osteoarthritis of the lower back. 5. Hypertensive heart disease. 6. Gastroesophageal reflux disease 7. Hyperlipidemia 8. Generalized anxiety disorder 9. Diabetes type 2, non-insulin dependent 10. Depressive disorder 11. Hepatomegaly with fatty liver disease 12. Status post sleeve gastrectomy PLAN: 1. Medical reconciliation reviewed including patient taking Zofran, Gas-X, omeprazole, Dulcolax, Tylenol. As she no longer has her gallbladder, ursodiol not indicated. 2. May start her protein shakes . Goal protein intake 75 to 90 g described. 3. May shower. 4. Signs of dehydration including nausea described with close outpatient follow-up. 5. Follow-up bariatric center 1 week Objective - Vital Signs Vital signs: Intake & Output 07/10/24 07/11/24 07/11/24 18:59 06:59 18:59 Weight 143.789 kg Assessment/Plan Plan: Date: Initial Weight: Initial BMI: Current Weight: 143.789 kg Current BMI: Type of Surgery: Total Volume in Band: Previous Volume: Volume Removed: Volume Added: Band Size:
[2024-07-11 11:41] VITALS: BMI 52.3
[2024-07-11 12:00] VITALS: BP 134/86; PULSE 70; RESP 16; TEMP 97.8
== END ==
LOC: BARWHC3 09:59
PROVIDERS: ATTEND Surgery Plastic and Reconstructive Surgery
DX: Z01.419 Encounter for gynecological examination (general) (routine) without abnormal findings (principal); E66.01 Morbid (severe) obesity due to excess calories; M17.9 Osteoarthritis of knee, unspecified; M19.90 Unspecified osteoarthritis, unspecified site; I11.9 Hypertensive heart disease without heart failure; K21.9 Gastro-esophageal reflux disease without esophagitis; E11.9 Type 2 diabetes mellitus without complications; F32.A Depression, unspecified; K76.0 Fatty (change of) liver, not elsewhere classified; F17.200 Nicotine dependence, unspecified, uncomplicated; Z68.43 Body mass index [BMI] 50.0-59.9, adult; Z98.84 Bariatric surgery status; Z88.8 Allergy status to other drugs, medicaments and biological substances
CPT/HCPCS: 97802; 99211

== ENCOUNTER → 2024-08-08 | Outpatient (CLI) | payer BC ==
[2024-08-08 15:49] LABS: Partial Thromboplastin Time 26.1 sec (22.0-30.0); Prothrombin Time 10.9 sec (10.0-12.5)
[2024-08-08 19:50] LABS: Prealbumin 20.3 mg/dL (18.0-42.0)
[2024-08-08 20:00] LABS: % Iron Saturation 11.18 (12.00-45.00); ALT 42 U/L (8-44); AST 34 U/L (13-35); Albumin 4.2 g/dL (3.8-4.9); Albumin/Globulin Ratio 1.35 Ratio (1.60-3.17); Alkaline Phosphatase 128 U/L (41-126); BUN/Creat Ratio 16.56 Ratio (12.00-20.00); Blood Urea Nitrogen 14.9 mg/dL (9.0-27.0); Calcium 9.5 mg/dL (8.7-10.3); Carbon Dioxide 21.4 mmol/L (21.6-31.8); Chloride 102 mmol/L (96-109); Chol/HDL Ratio 4.05 Ratio; Ferritin 71.1 ng/mL (10.0-291.0); Globulin 3.1 g/dL (1.6-3.3); Glucose 99 mg/dL (70-110); Iron 36 UG/DL (50-170); LDL Cholesterol,Calculated 126.9 mg/dL (0.0-131.0); Phosphorus 3.1 mg/dL (2.4-5.1); Potassium 3.8 mmol/L (3.5-5.5); Sodium 138 mmol/L (135-145); Total Bilirubin 0.4 mg/dL (0.3-1.2); Total Iron Binding Capacity 322 UG/DL (228-460); Total Protein 7.3 g/dL (6.2-8.2); VLDL Calculation 15.42 mg/dL (5.00-40.00)
[2024-08-09 10:21] LABS: HCT 43.2 % (37.2-46.3); HGB 13.5 g/dL (12.0-15.0); MCH 25.4 pg (27.0-32.0); MCHC 31.3 g/dL (32.0-37.0); MCV 81.2 FL (80.0-97.0); Mean Platelet Volume 12.6 FL (9.5-12.2); NRBC Per 100 WBC 0 X 10*3/uL (0.00-0.01); Platelet Count 239 X 10*3/uL (140-440); RBC 5.32 X 10*6/uL (4.10-5.20); RDW 16.2 % (11.5-14.5); WBC 7.14 X 10*3/uL (4.50-10.00)
[2024-08-09 13:07] LABS: Zinc, Serum 86 ug/dL (60-130)
[2024-08-10 06:45] LABS: Vitamin A 48 ug/dL (38-106)
== END | disposition home or self-care (01) ==
LOC: LABWHC1 14:46
PROVIDERS: ATTEND Surgery Plastic and Reconstructive Surgery
DX: E66.01 Morbid (severe) obesity due to excess calories (principal); D50.8 Other iron deficiency anemias; K74.1 Hepatic sclerosis; E55.9 Vitamin D deficiency, unspecified; E89.1 Postprocedural hypoinsulinemia; E44.0 Moderate protein-calorie malnutrition; E45 Retarded development following protein-calorie malnutrition; N19 Unspecified kidney failure; T56.894A Toxic effect of other metals, undetermined, initial encounter; K50.90 Crohn's disease, unspecified, without complications
CPT/HCPCS: 36415; 80053; 80061; 82306; 82525; 82607; 82728; 82746; 83036; 83540; 83550; 83735; 83970; 84100; 84134; 84255; 84425; 84443; 84590; 84630; 85027; 85610; 85730